=== PATIENT | male | born 1985 | race Caucasian/White ===

== ENCOUNTER 2017-01-27 14:35 | Emergency (ER) | payer OTHER ==
--- NOTE | 2017-01-27 15:51 | DIAGNOSTIC IMAGING REPORT ---
PROCEDURE: XR CHEST 2 VIEW INDICATION: LEFT RIB PAIN TECHNIQUE: PA and lateral view. COMPARISON: None. FINDINGS: Minor left basilar atelectasis. Cardiovascular structures are normal. Bony thorax is unremarkable. IMPRESSION: 1. Minor left basilar atelectasis.
--- NOTE | 2017-01-27 15:55 | ED NURSING NOTES ---
Clinical Report - Nurses [facility] [address] [place] [address] 01/27/2017 14:35 Patient: ALMA PORRAS TRIAGE Triage time 14:41. Acuity: LEVEL 4. Chief Complaint: (follow up on "fractured ribs and punctured lungs"). Alert. No acute distress. ( Pt. states he was seen in the ED in [facility] for falling out of a boat. He was treated for multiple rib fractures and a pneumothorax. He was given Percocet for the pain control and was instructed to be re-evaluated with a PCP but he has not been able to do this. He is here today because the ibuprofen is not working for pain control.). SEPSIS SCREEN: Sepsis Screen. Negative (no infection suspected/documented). ANNETTE COMA SCORE: Morton Coma Scale: 15- eyes open spontaneously (4); best verbal response- oriented x 4 (5); best motor response- obeys commands (6). --14:50 Corina Dave R.N. 14:41 01/27/17. BP: 148/98. HR: 60. RR: 16. O2 saturation: 100%. Temp: 98.9 F. Pain level now 6/10. --14:50 Corina Dave R.N. Weight: 113.3 kg stated. Height/Length: 72 inches Per Patient. BMI: 33.9. --14:44 Corina Dave R.N. Medications Ibuprofen Oral, as needed. --14:44 Corina Dave R.N. Allergies morphine. --14:44 Corina Dave R.N. History Arrived by private vehicle. Historian: patient. Unaccompanied. Primary physician (None). Onset. (1 week ago). 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 Seen within the last 30 days in the ED; seen for similar symptoms; xrays done; CT done; treatment- pain medication. (last dose around 10:00). SOCIAL HX: Light tobacco smoker (cigarette)- less than 1/2 a pack per day. Occasional alcohol use. (weekends). History of occasional drug use: marijuana. No infectious disease exposure. ABUSE ASSESSMENT: Abuse assessment: The patient was asked "Do you feel safe in your home?" and "Has anyone hurt you or threatened to hurt you?". No report of abuse. SELF HARM ASSESSMENT: A self harm assessment was performed. The patient answered "no" to the question "Do you have thoughts of harming or killing yourself?" and "Have you recently had thoughts about harming or killing others?". NUTRITIONAL RISK ASSESSMENT: The nutritional risk assessment revealed no deficiencies. FUNCTIONAL ASSESSMENT: Functional assessment: no impairments noted. LEARNING NEEDS ASSESSMENT: The learning needs assessment revealed no barriers. --14:50 Corina Dave R.N. PAST MEDICAL HX: Immunizations: up-to-date. --14:50 Corina Dave R.N. ADDITIONAL SURGERIES: Knee Surgery. Left wrist. --14:45 Corina Dave R.N. Interventions ID band on patient. Ambulatory. --14:50 Corina Dave R.N. PHYSICAL ASSESSMENT Ambulatory to room. GENERAL / NEURO / PSYCH: Alert. Oriented X 4. Appears in no acute distress. RESPIRATORY: Respirations not labored. Breath sounds within normal limits. CVS: Capillary refill less than 2 seconds. Pulses within normal limits. SKIN: Skin intact. Skin is warm and dry. --14:50 Corina Dave R.N. NURSING PROGRESS NOTES Patient gowned. Head of bed elevated. Two patient identifiers checked. Call light placed in reach. Side rails up x 2. Bed placed in lowest position. Brakes of bed on. Patient ready for evaluation- chart flagged. --14:50 Corina Dave R.N. 15:05 01/27/2017 Oxycodone PO 10 mg given. Allergies verified, confirmed 5 rights and sedative warning given to the patient. --15:05 Corina Dave R.N. DISPOSITION / DISCHARGE Condition at departure: stable. No learning barriers present. Discharge instructions provided and reviewed with the patient. Reviewed medication(s) side effects, precautions, dosing and course information. Prescription(s) given to the patient. Reviewed referral to family practice for followup. Patient verbalized understanding. Written instructions provided in Yakut. The patient was discharged home and accompanied by casino cage manager. He left the Emergency Department ambulatory and via private vehicle. Abstracter driving. Medication list reviewed and validated. --16:10 Corina Dave R.N. 16:10 01/27/17. BP: 144/79. HR: 60. RR: 16. O2 saturation: 100%. Pain level now 5/10. --16:10 Corina Dave R.N. Departure time: 16:11. --16:11 Corina Dave R.N. Locked/Released at 01/27/2017 16:11 by Corina Dave R.N.
--- NOTE | 2017-01-27 15:55 | ED CLINICAL REPORT ---
Clinical Report - Physicians/Mid Levels [facility] [address] [place] [address] 01/27/2017 14:35 Patient: ALMA PORRAS Time Seen: 1451. Arrived- By private vehicle. Historian- patient. HISTORY OF PRESENT ILLNESS Chief Complaint: Injury to CHEST. Location of injuries- (left anterior chest). The injury occurred several days ago. Fell (while on the boat). (out on the [place]). The patient complains of severe pain. No blow to the head, neck pain, loss of consciousness or seizure. Not dazed. reports no other pain or injury. patient states that he was seen at [place] and was diagnosed with rib fractures. Patient also states that he has a paper that discusses pneumothorax. REVIEW OF SYSTEMS No difficulty breathing or laceration. All systems otherwise negative, except as recorded above. PAST HISTORY See nurses notes. Tetanus immunization status is up-to-date. Medications: Ibuprofen Oral, as needed. Allergies: morphine. SOCIAL HISTORY Smoker- current status unknown. No alcohol use or drug use. Is a local resident. ADDITIONAL NOTES The nursing notes have been reviewed. PHYSICAL EXAM Vital Signs: 01/27/2017 14:41 BP: 148/98. HR: 60. RR: 16. O2 saturation: 100%. Temp: 98.9 F. Oxygen saturation normal. Appearance: Alert. Oriented X3. No acute distress. Head: Head non-tender. No swelling of head. No Aragon's sign or raccoon eyes. Eyes: Pupils equal, round and reactive to light. Pupillary exam: Right pupil round and reactive to light directly and consensually and with accommodation. Left pupil: 3mm, round and reactive to light directly and consensually and with accommodation. EOM intact. ENT: No dental injury. No hemotympanum. Pharynx normal. Neck: No decreased ROM or muscle spasm in the neck. No pain with movement of head/neck. Painless ROM. Non-tender. No vertebral tenderness. CVS: Heart sounds normal. Respiratory: Breath sounds normal. No rales, wheezes or rhonchi. (left anterior chest wall tenderness. No crepitus. No overlying skin changes.). Abdomen: No visible injury. Soft and nontender. Bowel sounds normal. Back: No tenderness. ROM normal. Skin: Skin intact. Skin warm and dry. Normal skin color. Normal skin turgor. Extremities: Normal inspection. Pelvis stable. Extremities atraumatic. No lower extremity edema. Neuro: Rickie Coma Scale: 15- eyes open spontaneously (4); best verbal response- oriented x 3 (5); best motor response- obeys commands (6). Oriented X 3. No motor deficit. No sensory deficit. PROGRESS AND PROCEDURES Course of Care: the patient is a pleasant 31-year-old male presenting for evaluation of left anterior chest injury. Patient states that he fell while on a boat. Patient has discharge instructions with him for pneumothorax. Would be concerned for indolentcourse of pneumothorax. Patient does have equal breath sounds bilaterally however would evaluate for pneumothorax. Patient is agreeable to the treatment plan. Chest x-ray and pain medication as been ordered. The patient's workup was markable for the findings above. Had a discussion with the patient in regards to his workup here in emergency departments including diagnosis, home care, follow-up, and return precautions. All questions have been answered. The patient expressed understanding of these instructions and was agreeable to them. In particular, had discussion with the patient in regards to pneumothorax and tension pneumothorax as well as risk factors for pneumonia and how to decrease his risk of this. Also discussed with the patient narcotics and their purpose for treatment as well as negative effects of narcotics. Patient expressed that he had had several surgeries and states he understands the risks of narcotics and states that he will not be addicted and will be responsible. Disposition: Discharged. Condition: good. CLINICAL IMPRESSION 01/27/2017 14:41 BP: 148/98. HR: 60. RR: 16. O2 saturation: 100%. Temp: 98.9 F. Blood pressure normal. Oxygen saturation normal. Multiple left rib fractures (subsequent encounter from ground level fall). Essential hypertension. acute left sided chest wall pain. INSTRUCTIONS Warnings: GENERAL WARNINGS: Return or contact your physician immediately if your condition worsens or changes unexpectedly, if not improving as expected, or if other problems arise. SPECIFICALLY, return if you develop weakness, numbness, tingling, pain or incontinence. Your Current Medications: CONTINUE TAKING THE FOLLOWING MEDICATIONS: Ibuprofen Oral : prn. Prescription Medications: Oxycodone 5 mg tablets: take 1-2 orally every 6 hours as needed for pain. Dispense thirty (30). No refill. Follow-up: Return to the emergency department as needed. Follow up with your doctor in three days. Reason for referral: recheck today's concerns. Screening today revealed the patient's blood pressure to be in the normal range. The patient should follow up with a primary care provider for blood pressure management. Understanding of the discharge instructions verbalized by patient. Follow-up with: [facility], , , [address], , [place], [id number] Follow up in three days. Reason for referral: contact if you can not see your primary care provider. Summary of care provided to patient and family via paper. (Electronically signed by Hema Pace Dr. 01/30/2017 9:46)
--- NOTE | 2017-01-27 15:55 | ED CLINICAL REPORT ---
Clinical Report - Physicians/Mid Levels [facility] [address] [place] [address] 01/27/2017 14:35 Patient: ALMA PORRAS Time Seen: 1451. Arrived- By private vehicle. Historian- patient. HISTORY OF PRESENT ILLNESS Chief Complaint: Injury to CHEST. Location of injuries- (left anterior chest). The injury occurred several days ago. Fell (while on the boat). (out on the [place]). The patient complains of severe pain. No blow to the head, neck pain, loss of consciousness or seizure. Not dazed. reports no other pain or injury. patient states that he was seen at [place] and was diagnosed with rib fractures. Patient also states that he has a paper that discusses pneumothorax. REVIEW OF SYSTEMS No difficulty breathing or laceration. All systems otherwise negative, except as recorded above. PAST HISTORY See nurses notes. Tetanus immunization status is up-to-date. Medications: Ibuprofen Oral, as needed. Allergies: morphine. SOCIAL HISTORY Smoker- current status unknown. No alcohol use or drug use. Is a local resident. ADDITIONAL NOTES The nursing notes have been reviewed. PHYSICAL EXAM Vital Signs: 01/27/2017 14:41 BP: 148/98. HR: 60. RR: 16. O2 saturation: 100%. Temp: 98.9 F. Oxygen saturation normal. Appearance: Alert. Oriented X3. No acute distress. Head: Head non-tender. No swelling of head. No Aragon's sign or raccoon eyes. Eyes: Pupils equal, round and reactive to light. Pupillary exam: Right pupil round and reactive to light directly and consensually and with accommodation. Left pupil: 3mm, round and reactive to light directly and consensually and with accommodation. EOM intact. ENT: No dental injury. No hemotympanum. Pharynx normal. Neck: No decreased ROM or muscle spasm in the neck. No pain with movement of head/neck. Painless ROM. Non-tender. No vertebral tenderness. CVS: Heart sounds normal. Respiratory: Breath sounds normal. No rales, wheezes or rhonchi. (left anterior chest wall tenderness. No crepitus. No overlying skin changes.). Abdomen: No visible injury. Soft and nontender. Bowel sounds normal. Back: No tenderness. ROM normal. Skin: Skin intact. Skin warm and dry. Normal skin color. Normal skin turgor. Extremities: Normal inspection. Pelvis stable. Extremities atraumatic. No lower extremity edema. Neuro: Rickie Coma Scale: 15- eyes open spontaneously (4); best verbal response- oriented x 3 (5); best motor response- obeys commands (6). Oriented X 3. No motor deficit. No sensory deficit. PROGRESS AND PROCEDURES Course of Care: the patient is a pleasant 31-year-old male presenting for evaluation of left anterior chest injury. Patient states that he fell while on a boat. Patient has discharge instructions with him for pneumothorax. Would be concerned for indolentcourse of pneumothorax. Patient does have equal breath sounds bilaterally however would evaluate for pneumothorax. Patient is agreeable to the treatment plan. Chest x-ray and pain medication as been ordered. The patient's workup was markable for the findings above. Had a discussion with the patient in regards to his workup here in emergency departments including diagnosis, home care, follow-up, and return precautions. All questions have been answered. The patient expressed understanding of these instructions and was agreeable to them. In particular, had discussion with the patient in regards to pneumothorax and tension pneumothorax as well as risk factors for pneumonia and how to decrease his risk of this. Also discussed with the patient narcotics and their purpose for treatment as well as negative effects of narcotics. Patient expressed that he had had several surgeries and states he understands the risks of narcotics and states that he will not be addicted and will be responsible. Disposition: Discharged. Condition: good. CLINICAL IMPRESSION 01/27/2017 14:41 BP: 148/98. HR: 60. RR: 16. O2 saturation: 100%. Temp: 98.9 F. Blood pressure normal. Oxygen saturation normal. Multiple left rib fractures (subsequent encounter from ground level fall). Essential hypertension. acute left sided chest wall pain. INSTRUCTIONS Warnings: GENERAL WARNINGS: Return or contact your physician immediately if your condition worsens or changes unexpectedly, if not improving as expected, or if other problems arise. SPECIFICALLY, return if you develop weakness, numbness, tingling, pain or incontinence. Your Current Medications: CONTINUE TAKING THE FOLLOWING MEDICATIONS: Ibuprofen Oral : prn. Prescription Medications: Oxycodone 5 mg tablets: take 1-2 orally every 6 hours as needed for pain. Dispense thirty (30). No refill. Follow-up: Return to the emergency department as needed. Follow up with your doctor in three days. Reason for referral: recheck today's concerns. Screening today revealed the patient's blood pressure to be in the normal range. The patient should follow up with a primary care provider for blood pressure management. Understanding of the discharge instructions verbalized by patient. Follow-up with: [facility], , , [address], , [place], [address] Follow up in three days. Reason for referral: contact if you can not see your primary care provider. Summary of care provided to patient and family via paper. (Electronically signed by Hema Pace Dr. 01/30/2017 9:46)
--- NOTE | 2017-01-27 15:55 | ED NURSING NOTES ---
Clinical Report - Nurses [facility] [address] [place] [address] 01/27/2017 14:35 Patient: ALMA PORRAS TRIAGE Triage time 14:41. Acuity: LEVEL 4. Chief Complaint: (follow up on "fractured ribs and punctured lungs"). Alert. No acute distress. ( Pt. states he was seen in the ED in [facility] for falling out of a boat. He was treated for multiple rib fractures and a pneumothorax. He was given Percocet for the pain control and was instructed to be re-evaluated with a PCP but he has not been able to do this. He is here today because the ibuprofen is not working for pain control.). SEPSIS SCREEN: Sepsis Screen. Negative (no infection suspected/documented). ANNETTE COMA SCORE: Mitchell Coma Scale: 15- eyes open spontaneously (4); best verbal response- oriented x 4 (5); best motor response- obeys commands (6). --14:50 Corina Dave R.N. 14:41 01/27/17. BP: 148/98. HR: 60. RR: 16. O2 saturation: 100%. Temp: 98.9 F. Pain level now 6/10. --14:50 Corina Dave R.N. Weight: 113.3 kg stated. Height/Length: 72 inches Per Patient. BMI: 33.9. --14:44 Corina Dave R.N. Medications Ibuprofen Oral, as needed. --14:44 Corina Dave R.N. Allergies morphine. --14:44 Corina Dave R.N. History Arrived by private vehicle. Historian: patient. Unaccompanied. Primary physician (None). Onset. (1 week ago). 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 Seen within the last 30 days in the ED; seen for similar symptoms; xrays done; CT done; treatment- pain medication. (last dose around 10:00). SOCIAL HX: Light tobacco smoker (cigarette)- less than 1/2 a pack per day. Occasional alcohol use. (weekends). History of occasional drug use: marijuana. No infectious disease exposure. ABUSE ASSESSMENT: Abuse assessment: The patient was asked "Do you feel safe in your home?" and "Has anyone hurt you or threatened to hurt you?". No report of abuse. SELF HARM ASSESSMENT: A self harm assessment was performed. The patient answered "no" to the question "Do you have thoughts of harming or killing yourself?" and "Have you recently had thoughts about harming or killing others?". NUTRITIONAL RISK ASSESSMENT: The nutritional risk assessment revealed no deficiencies. FUNCTIONAL ASSESSMENT: Functional assessment: no impairments noted. LEARNING NEEDS ASSESSMENT: The learning needs assessment revealed no barriers. --14:50 Corina Dave R.N. PAST MEDICAL HX: Immunizations: up-to-date. --14:50 Corina Dave R.N. ADDITIONAL SURGERIES: Knee Surgery. Left wrist. --14:45 Corina Dave R.N. Interventions ID band on patient. Ambulatory. --14:50 Corina Dave R.N. PHYSICAL ASSESSMENT Ambulatory to room. GENERAL / NEURO / PSYCH: Alert. Oriented X 4. Appears in no acute distress. RESPIRATORY: Respirations not labored. Breath sounds within normal limits. CVS: Capillary refill less than 2 seconds. Pulses within normal limits. SKIN: Skin intact. Skin is warm and dry. --14:50 Corina Dave R.N. NURSING PROGRESS NOTES Patient gowned. Head of bed elevated. Two patient identifiers checked. Call light placed in reach. Side rails up x 2. Bed placed in lowest position. Brakes of bed on. Patient ready for evaluation- chart flagged. --14:50 Corina Dave R.N. 15:05 01/27/2017 Oxycodone PO 10 mg given. Allergies verified, confirmed 5 rights and sedative warning given to the patient. --15:05 Coirna Dave R.N. DISPOSITION / DISCHARGE Condition at departure: stable. No learning barriers present. Discharge instructions provided and reviewed with the patient. Reviewed medication(s) side effects, precautions, dosing and course information. Prescription(s) given to the patient. Reviewed referral to family practice for followup. Patient verbalized understanding. Written instructions provided in Georgian. The patient was discharged home and accompanied by edi developer. He left the Emergency Department ambulatory and via private vehicle. Interior Specialist driving. Medication list reviewed and validated. --16:10 Corina Dave R.N. 16:10 01/27/17. BP: 144/79. HR: 60. RR: 16. O2 saturation: 100%. Pain level now 5/10. --16:10 Corina Dave R.N. Departure time: 16:11. --16:11 Corina Dave R.N. Locked/Released at 01/27/2017 16:11 by Corina Dave R.N.
--- NOTE | 2017-01-27 15:55 | ED ORDER SUMMARY ---
..... Patient: ALMA PORRAS OrderSheet [facility] VisitID: [id number] [address] [place] [address] 31y, M Registration Date/Time: 01/27/2017 ORDER SHEET Weight: 113.3 kg (stated) Allergies: morphine GENERAL ORDERS: Chest 2V Urgent (14:59 01/27/2017 Hu Martinez) (Ack 15:06 Luis A) (15:20 Lamont) MEDICATION ORDERS: - (oxycodone 10 mg PO once now) (14:59 01/27/2017 Hu Martinez) (Ack 15:00 Esthela Pal) (15:05 Esthela Pal) IV FLUIDS: ORDER SHEET NOTES: [Electronically signed by Corina Dave R.N. (16:11 01/27/2017)] [Electronically signed by Hema Pace Dr. (09:46 01/30/2017)] [Electronically locked/signed by Corina Dave R.N. (16:11 01/27/2017)]
--- NOTE | 2017-01-27 15:55 | ED ORDER SUMMARY ---
..... Patient: ALMA PORRAS OrderSheet [facility] VisitID: [id number] [address] [place] [address] 31y, M Registration Date/Time: 01/27/2017 ORDER SHEET Weight: 113.3 kg (stated) Allergies: morphine GENERAL ORDERS: Chest 2V Urgent (14:59 01/27/2017 Hu Martinez) (Ack 15:06 Luis A) (15:20 Lamont) MEDICATION ORDERS: - (oxycodone 10 mg PO once now) (14:59 01/27/2017 Hu Martinez) (Ack 15:00 Esthela Pal) (15:05 Esthela Pal) IV FLUIDS: ORDER SHEET NOTES: [Electronically signed by Corina Dave R.N. (16:11 01/27/2017)] [Electronically signed by Hema Pace Dr. (09:46 01/30/2017)] [Electronically locked/signed by Corina Dave R.N. (16:11 01/27/2017)]
--- NOTE | 2017-01-30 09:46 | ED MED RECONCILIATION SUMMARY ---
Patient: ALMA PORRAS Medication Reconciliation Report [facility] VisitID: [id number] [address] [place] [address] 31y, M Registration Date/Time: 01/27/2017 Weight: 113.3 kg Height/Length: 72 in. BMI: 33.9 ALLERGIES: morphine The patient's Home Medications are listed below: CONTINUE TAKING THE FOLLOWING MEDICATIONS: Ibuprofen Oral The source(s) of the original Home Medication information: Not obtained. The following Medications were given to the patient in the Emergency Department: Oxycodone [PO] PO 10 mg, administered: 01/27/2017 3:05:00 PM The following Medications were prescribed to the patient: Oxycodone 5 mg tablets: take 1-2 orally every 6 hours as needed for pain. Dispense thirty (30). No refill. -- Hema Pace Dr.
--- NOTE | 2017-01-30 09:46 | ED MAR SUMMARY ---
..... Medication Administration Record [facility] [address] [place] [address] Patient: ALMA PORRAS Visit ID: [id number] 31y, M Weight: 113.3 kg Height/Length: 72 in BMI: 33.9 ALLERGIES: morphine Given 15:05 01/27/2017 Corina Dave R.N. Medication Administered: OXYCODONE [PO], Dose: 10 mg PO. Medication Ordered: - (oxycodone 10 mg PO once now).
--- NOTE | 2017-01-30 09:46 | ED DISCHARGE INSTRUCTIONS ---
Patient: ALMA PORRAS General Instructions [facility] VisitID: [id number] [address] [place] [address] 31y, M Registration Date/Time: 01/27/2017 01/27/2017 14:41 BP: 148/98. HR: 60. RR: 16. O2 saturation: 100%. Temp: 98.9 F. Blood pressure normal. Oxygen saturation normal. Multiple left rib fractures (subsequent encounter from ground level fall). Essential hypertension. acute left sided chest wall pain. INSTRUCTIONS Warnings: GENERAL WARNINGS: Return or contact your physician immediately if your condition worsens or changes unexpectedly, if not improving as expected, or if other problems arise. SPECIFICALLY, return if you develop weakness, numbness, tingling, pain or incontinence. Your Current Medications: CONTINUE TAKING THE FOLLOWING MEDICATIONS: Ibuprofen Oral : prn. Prescription Medications: Oxycodone 5 mg tablets: take 1-2 orally every 6 hours as needed for pain. Dispense thirty (30). No refill. Follow-up: Return to the emergency department as needed. Follow up with your doctor in three days. Reason for referral: recheck today's concerns. Screening today revealed the patient's blood pressure to be in the normal range. The patient should follow up with a primary care provider for blood pressure management. Understanding of the discharge instructions verbalized by patient. Follow-up with: [facility], , , [address], [place], [id number] Follow up in three days. Reason for referral: contact if you can not see your primary care provider. Summary of care provided to patient and family via paper. ADDITIONAL INFORMATION Rib Fracture You have a fracture (break) of one or more ribs. Rib fractures do not require a cast like other bones. They will heal by themselves in about 4-6 weeks. The first 3-4 weeks will be the most painful because deep breathing, coughing or changing position from sitting to lying down, may cause the broken ends to move slightly. Home Care: Rest. You should not be doing any heavy lifting or strenuous exertion until the pain goes away. Because it hurts to breathe when you have a broken rib, there is risk of getting pneumonia from poor airflow through your lungs. To prevent this: Take four very deep breaths at least four times a day (exhale through pursed lips as if you are blowing up a balloon). If an "incentive spirometer" (breathing exercise device) was given to you, use it at least four times a day, or as directed. Apply an ice pack (ice cubes in a plastic bag, wrapped in a towel) over the injured area for 20 minutes every 1-2 hours the first day. Continue with ice packs 3-4 times a day for the next two days, then as needed for the relief of pain and swelling. You may use acetaminophen (Tylenol) or ibuprofen (Motrin, Advil) to control pain, unless another pain medicine was prescribed. [NOTE: If you have chronic liver or kidney disease or ever had a stomach ulcer or GI bleeding, talk with your doctor before using these medicines.] If your pain is not controlled by the treatment given, contact your doctor. Sometimes a stronger pain medicine may be needed. A nerve block (numbing the nerve between the ribs) can be performed in case of severe pain. Follow Up with your doctor during the next week, or as advised. Rarely, a broken rib will cause complications within the first few days that may not be evident during your initial exam (such as, collapsed lung, bleeding around the lung or into the abdomen, or pneumonia). Therefore, watch for the signs below. [NOTE: If x-rays were taken, they will be reviewed by a radiologist. You will be notified of any new findings that may affect your care.] Get Prompt Medical Attention if any of the following occur: Shortness of breath Increasing chest pain with breathing Dizziness, weakness or fainting New or worsening abdominal pain Fever of 100.4F (38C) or higher, or as directed by your healthcare provider Congested cough High Blood Pressure -- To Be Confirmed [No Tx] Your blood pressure was higher today than normal. Sometimes anxiety or pain can cause a temporary rise in blood pressure that later returns to normal. If your blood pressure is high on one measurement, this does not mean that you have hypertension (a chronic illness). However, you must have your blood pressure measured again within the next few days to find out if its still high. A normal blood pressure is 120/80 or less. The first (top) number is the "systolic" pressure. The second (bottom) number is the "diastolic" pressure. Hypertension exists when either the top number is 140 or higher, OR the bottom number is 90 or higher on repeated measurements. Blood pressure in the range of 120-140 (systolic) or 80-89 (diastolic) is considered "pre-hypertension". This means your are at risk for getting hypertension. You should have regular blood pressure checks to be sure your blood pressure is not rising. Home Care: Measure your blood pressure on 3 different days and write down the results. This can be done at your doctor's office or this facility. Some pharmacies and grocery stores offer automated blood pressure machines for your use. Follow Up: If your blood pressure is "high" (over 120/80) on 2 out of 3 days, you will need to follow up with your doctor for further evaluation and treatment. DO NOT PUT THIS OFF! Untreated high blood pressure increases the risk for heart attack, also known as acute myocardial infarction, or AMI, and stroke. It is a treatable condition. Get Prompt Medical Attention if any of the following occur: Chest pain or shortness of breath Severe headache Throbbing or rushing sound in the ears Nosebleed Sudden severe abdominal pain Extreme drowsiness, confusion or fainting Dizziness or vertigo (dizziness with spinning sensation) Weakness of an arm or leg or one side of the face Difficulty with speech or vision Oxycodone Hydrochloride, Acetaminophen Oral tablet What is this medicine? ACETAMINOPHEN; OXYCODONE (a set a LIGIA kevin fen; ox i KOE done) is a pain reliever. It is used to treat mild to moderate pain. How should I use this medicine? Take this medicine by mouth with a full glass of water. Follow the directions on the prescription label. Take your medicine at regular intervals. Do not take your medicine more often than directed. Talk to your street department dispatcher regarding the use of this medicine in children. Special care may be needed. Patients over 65 years old may have a stronger reaction and need a smaller dose. What side effects may I notice from receiving this medicine? Side effects that you should report to your doctor or health care transition mgr as soon as possible: allergic reactions like skin rash, itching or hives, swelling of the face, lips, or tongue breathing difficulties, wheezing confusion light headedness or fainting spells severe stomach pain yellowing of the skin or the whites of the eyes Side effects that usually do not require medical attention (report to your doctor or health care transition mgr if they continue or are bothersome): dizziness drowsiness nausea vomiting What may interact with this medicine? alcohol antihistamines barbiturates like amobarbital, butalbital, butabarbital, methohexital, pentobarbital, phenobarbital, thiopental, and secobarbital benztropine drugs for bladder problems like solifenacin, trospium, oxybutynin, tolterodine, hyoscyamine, and methscopolamine drugs for breathing problems like ipratropium and tiotropium drugs for certain stomach or intestine problems like propantheline, homatropine methylbromide, glycopyrrolate, atropine, belladonna, and dicyclomine general anesthetics like etomidate, ketamine, nitrous oxide, propofol, desflurane, enflurane, halothane, isoflurane, and sevoflurane medicines for depression, anxiety, or psychotic disturbances medicines for sleep muscle relaxants naltrexone narcotic medicines (opiates) for pain phenothiazines like perphenazine, thioridazine, chlorpromazine, mesoridazine, fluphenazine, prochlorperazine, promazine, and trifluoperazine scopolamine tramadol trihexyphenidyl What if I miss a dose? If you miss a dose, take it as soon as you can. If it is almost time for your next dose, take only that dose. Do not take double or extra doses. Where should I keep my medicine? Keep out of the reach of children. This medicine can be abused. Keep your medicine in a safe place to protect it from theft. Do not share this medicine with anyone. Selling or giving away this medicine is dangerous and against the law. Store at room temperature between 20 and 25 degrees C (68 and 77 degrees F). Keep container tightly closed. Protect from light. This medicine may cause accidental overdose and if it is taken by other adults, children, or pets. Flush any unused medicine down the toilet to reduce the chance of harm. Do not use the medicine after the expiration date. What should I tell my health care provider before I take this medicine? They need to know if you have any of these conditions: brain tumor Crohn's disease, inflammatory bowel disease, or ulcerative colitis drink more than 3 alcohol containing drinks per day drug abuse or addiction head injury heart or circulation problems kidney disease or problems going to the bathroom liver disease lung disease, asthma, or breathing problems an unusual or allergic reaction to acetaminophen, oxycodone, other opioid analgesics, other medicines, foods, dyes, or preservatives or trying to get breast-feeding What should I watch for while using this medicine? Tell your doctor or health care transition mgr if your pain does not go away, if it gets worse, or if you have new or a different type of pain. You may develop tolerance to the medicine. Tolerance means that you will need a higher dose of the medication for pain relief. Tolerance is normal and is expected if you take this medicine for a long time. Do not suddenly stop taking your medicine because you may develop a severe reaction. Your body becomes used to the medicine. This does NOT mean you are addicted. Addiction is a behavior related to getting and using a drug for a non-medical reason. If you have pain, you have a medical reason to take pain medicine. Your doctor will tell you how much medicine to take. If your doctor wants you to stop the medicine, the dose will be slowly lowered over time to avoid any side effects. You may get drowsy or dizzy. Do not drive, use machinery, or do anything that needs mental alertness until you know how this medicine affects you. Do not stand or sit up quickly, especially if you are an older patient. This reduces the risk of dizzy or fainting spells. Alcohol may interfere with the effect of this medicine. Avoid alcoholic drinks. There are different types of narcotic medicines (opiates) for pain. If you take more than one type at the same time, you may have more side effects. Give your health care provider a list of all medicines you use. Your doctor will tell you how much medicine to take. Do not take more medicine than directed. Call emergency for help if you have problems breathing. The medicine will cause constipation. Try to have a bowel movement at least every 2 to 3 days. If you do not have a bowel movement for 3 days, call your doctor or health care transition mgr. Do not take Tylenol (acetaminophen) or medicines that have acetaminophen with this medicine. Too much acetaminophen can be very dangerous. Many nonprescription medicines contain acetaminophen. Always read the labels carefully to avoid taking more acetaminophen. You have been given the following additional information: Fracture, Rib Hypertension, To Be Confirmed Oxycodone Hydrochloride, Acetaminophen Oral tablet (Electronically signed by Hema Pace Dr. 01/30/2017 9:46)
--- NOTE | 2017-01-30 09:46 | ED MAR SUMMARY ---
..... Medication Administration Record [facility] [address] [place] [address] Patient: ALMA PORRAS Visit ID: [id number] 31y, M Weight: 113.3 kg Height/Length: 72 in BMI: 33.9 ALLERGIES: morphine Given 15:05 01/27/2017 Corina Dave R.N. Medication Administered: OXYCODONE [PO], Dose: 10 mg PO. Medication Ordered: - (oxycodone 10 mg PO once now).
--- NOTE | 2017-01-30 09:46 | ED MED RECONCILIATION SUMMARY ---
Patient: ALMA PORRAS Medication Reconciliation Report [facility] VisitID: [id number] [address] [place] [address] 31y, M Registration Date/Time: 01/27/2017 Weight: 113.3 kg Height/Length: 72 in. BMI: 33.9 ALLERGIES: morphine The patient's Home Medications are listed below: CONTINUE TAKING THE FOLLOWING MEDICATIONS: Ibuprofen Oral The source(s) of the original Home Medication information: Not obtained. The following Medications were given to the patient in the Emergency Department: Oxycodone [PO] PO 10 mg, administered: 01/27/2017 3:05:00 PM The following Medications were prescribed to the patient: Oxycodone 5 mg tablets: take 1-2 orally every 6 hours as needed for pain. Dispense thirty (30). No refill. -- Hema Pace Dr.
== END 2017-01-27 16:11 | disposition home or self-care (01) ==
LOC: ED SRH 14:35
DX: S22.42XD Multiple fractures of ribs, left side, subsequent encounter for fracture with routine healing (principal); I10 Essential (primary) hypertension; R07.89 Other chest pain; W19.XXXA Unspecified fall, initial encounter; Y93.9 Activity, unspecified; Y92.828 Other wilderness area as the place of occurrence of the external cause; Y99.9 Unspecified external cause status